=== PATIENT | male | born 1965 | race Caucasian/White ===

== ENCOUNTER 2016-09-02 19:35 | Emergency (ER) | payer SELFPAY ==
[2016-09-02 21:17] LABS: ABSOLUTE EOSINOPHILS # (AUTO) 0.1 10^3/uL (0.0-0.6); ABSOLUTE MONOCYTES (AUTO) 0.5 10^3/uL (0.1-1.4); ABSOLUTE NEUT (AUTO) 3.1 10^3/uL (1.7-8.2); BASOPHILS % (AUTO) 0.8 % (0-2); HEMATOCRIT 44.5 % (37.9-51.0); HEMOGLOBIN 14.9 g/dL (13.5-17.0); HGB HCT DIFFERENCE 0.2; LYMPHOCYTES % (AUTO) 35.1 % (13-45); MEAN CORPUSCULAR HEMOGLOBIN 31.3 pg (27.0-33.4); MEAN CORPUSCULAR HGB CONC 33.4 g/dL (32.0-36.0); MEAN CORPUSCULAR VOLUME 94 fl (80-97); MONOCYTES % (AUTO) 8.5 % (3-13); RED BLOOD COUNT 4.75 10^6/uL (4.35-5.55); RED CELL DISTRIBUTION WIDTH 13.2 % (11.5-14.0); SEGMENTED NEUTROPHILS % (AUTO) 54.6 % (42-78); WHITE BLOOD COUNT 5.6 10^3/uL (4.0-10.5)
[2016-09-02 21:37] LABS: ALANINE AMINOTRANSFERASE 44 U/L (21-72); ALBUMIN 4.6 g/dL (3.5-5.0); ALCOHOL 227 mg/dL (NONE DETECTED); ALKALINE PHOSPHATASE 84 U/L (38-126); ANION GAP 14 (5-19); ASPARTATE AMINO TRANSFERASE 34 U/L (17-59); BILIRUBIN,DIRECT 0.3 mg/dL (0.0-0.4); BILIRUBIN,TOTAL 0.5 mg/dL (0.2-1.3); BLOOD UREA NITROGEN 9 mg/dL (7-20); CALCIUM 9.5 mg/dL (8.4-10.2); CARBON DIOXIDE 25 mmol/L (22-30); CHLORIDE 96 mmol/L (98-107); GLUCOSE 98 mg/dL (75-110); POTASSIUM 4.6 mmol/L (3.6-5.0); TOTAL PROTEIN 7.6 g/dL (6.3-8.2)
--- NOTE | 2016-09-02 21:40 | ER Document Report ---
ED General - General Chief Complaint: Psych Problem Stated Complaint: IVC W/PAPERS Cannot obtain history due to: Intoxicated, Altered mental status Notes: Patient is a 51-year-old male who arrives on involuntary commitment paperwork after being found intoxicated, almost stumbling into traffic. He began expressing delusional ideas to the officer and was subsequently placed on IVC and transported to the emergency department. 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 States he "had a rough day today" as to why he has been drinking so much today. He is not providing any additional meaningful history. TRAVEL OUTSIDE OF THE [place] IN LAST 30 DAYS: No - Related Data Allergies/Adverse Reactions: cephalexin monohydrate [From Keflex] Allergy (Severe, Verified 09/02/16 19:47) Anaphylaxis Penicillins Allergy (Severe, Verified 09/02/16 19:47) Anaphylaxis Past Medical History - General Information source: Patient, Emergency Med Personnel - Social History Smoking Status: Current Every Day Smoker Frequency of alcohol use: Occasional Drug Abuse: None Family History: Reviewed & Not Pertinent Patient has suicidal ideation: No Patient has homicidal ideation: No Renal/ Medical History: Denies: Hx Peritoneal Dialysis - Immunizations Hx Diphtheria, Pertussis, Tetanus Vaccination: No Review of Systems - Review of Systems Notes: Constitutional: Negative for fever. HENT: Negative for sore throat. Eyes: Negative for visual changes. Cardiovascular: Negative for chest pain. Respiratory: Negative for shortness of breath. Gastrointestinal: Negative for abdominal pain, vomiting or diarrhea. Genitourinary: Negative for dysuria. Musculoskeletal: Negative for back pain. Skin: Negative for rash. Neurological: Negative for headaches, weakness or numbness. 10 point ROS negative except as marked above and in HPI. Physical Exam - Vital signs Vitals: Temp Pulse Resp BP Pulse Ox 98.1 F 96 20 154/92 H 99 09/02/16 19:43 09/02/16 19:43 09/02/16 19:43 09/02/16 19:43 09/02/16 19:43 Interpretation: Hypertensive Notes: PHYSICAL EXAMINATION: GENERAL: Somewhat disheveled but in no acute distress. Smells of alcohol HEAD: Atraumatic, normocephalic. EYES: Pupils equal round and reactive to light, extraocular movements intact, sclera anicteric, conjunctiva are normal. ENT: nares patent, oropharynx clear without exudates. Moderately dry mucous membranes. NECK: Normal range of motion, supple without lymphadenopathy LUNGS: Breath sounds clear to auscultation bilaterally and equal. No wheezes rales or rhonchi. HEART: Regular rate and rhythm without murmurs ABDOMEN: Soft, nontender, normoactive bowel sounds. No guarding, no rebound. No masses appreciated. EXTREMITIES: Normal range of motion, no pitting or edema. No cyanosis. NEUROLOGICAL: No focal neurological deficits. Moves all extremities spontaneously and on command. PSYCH: Pleasant on contact but expressing delusional thought processes. Intoxicated SKIN: Warm, Dry, normal turgor, no rashes or lesions noted. Course - Re-evaluation Re-evalutation: 09/02/16 21:39 Patient arrives intoxicated but calm and cooperative after apparently being found stumbling on the side of the road and was walking into traffic. Patient is delusional, stating repeatedly that he is not agent and needs to back to work. Review of prior records demonstrates that patient often has delusions regarding the [employer] in either being a member of the [employer] or being under FBI protection. He has had substance abuse issues in the past per chart review. He is visibly intoxicated at time of my assessment. He denies any acute suicidal or homicidal ideation. He is already under involuntary commitment I believe this is appropriate at this time given his apparent confusion, intoxication, and ongoing delusions. He denies any acute medical complaints. Medical screening exam is unremarkable. He is cleared for evaluation by psychiatry. - Vital Signs Vital signs: Temp Pulse Resp BP Pulse Ox 98.1 F 96 20 154/92 H 99 09/02/16 19:43 09/02/16 19:43 09/02/16 19:43 09/02/16 19:43 09/02/16 19:43 - Laboratory Result Diagrams: 09/02/16 21:05 09/02/16 21:05 Laboratory results interpreted by me: 09/02/16 21:05 Sodium 135.0 L Chloride 96 L Salicylates < 1.0 L Acetaminophen < 10 L - EKG Interpretation by Me Additional EKG results interpreted by me: 09/03/16 03:07 Normal sinus rhythm. Rate 70. No ST elevations or depressions. QTC is 402. Discharge - Discharge Clinical Impression: Delusions Alcoholic intoxication Qualifiers: Complication of substance-induced condition: uncomplicated Qualified Code(s): F10.920 - Alcohol use, unspecified with intoxication, uncomplicated Condition: Stable Disposition: PSYCH HOSP/UNIT
[2016-09-02 21:53] LABS: URINE BARBITURATES SCREEN NEGATIVE; URINE METHADONE SCREEN NEGATIVE; URINE OPIATES LOW NEGATIVE; URINE PHENCYCLIDINE SCREEN NEGATIVE
[2016-09-02 22:02] LABS: APPEARANCE,URINE CLEAR; BILIRUBIN,URINE NEGATIVE (NEGATIVE); GLUCOSE, URINE NEGATIVE (NEGATIVE); KETONES,URINE NEGATIVE (NEGATIVE); LEUKOCYTE ESTERASE,URINE NEGATIVE (NEGATIVE); NITRITE,URINE NEGATIVE (NEGATIVE); PROTEIN,URINE NEGATIVE (NEGATIVE); URINE SPECIFIC GRAVITY 1.003; UROBILINOGEN,URINE NEGATIVE mg/dL (<2.0)
--- NOTE | 2016-09-02 22:29 | EKG REPORT ---
SEVERITY:- NORMAL ECG - SINUS RHYTHM : Confirmed by: Vito Randle MD 02-Sep-2016 22:29:25
--- NOTE | 2016-09-03 10:01 | ER Document Report ---
Doctor's Note Notes: 09/03/16 10:01 Lab work vital signs have been reviewed. At this time patient is currently stable with no overnight events requiring no intervention at this time. Patient stable for transfer or other disposition
--- NOTE | 2016-09-03 11:26 | ER Document Report ---
ED Psych Disorder / Suicide - General Information source: Patient, [facility] Records TRAVEL OUTSIDE OF THE [place] IN LAST 30 DAYS: No - HPI Patient complains to provider of: Other - delusuions; acutely intoxicated upon arrival Onset: Other - chronic Onset was: Cannot confirm Suicide Risk Factors: Lack of social support, Male, Schizophrenia, Substance abuse - ETOH Situational problems related to: Other Normal mood: Yes - patient is at baseline Associated symptoms: Normal affect, Normal mood, Flight of ideas, Other - delusions re: working for or being under FBI protection Similar symptoms previously: Yes - chronic/foxated Recently seen / treated by doctor: Yes <YAYA CHING - Last Filed: 09/03/16 11:14> <ISABEL ARGUETA - Last Filed: 09/03/16 11:36> - General Chief Complaint: Psych Problem Stated Complaint: IVC W/PAPERS - HPI Notes: Patient is a 51 year old male who presented overnight via [employer] when he was intoxicated and wandering through moving traffic. Patient was reportedly talking about the [employer] and referencing needing to get back to work. Note, patient's delusions regarding the FBI date back to 2011 per his EMR. Note, prior episodes also involved acute levels of intoxication. Patient this morning states his body is deteriorating and he needs to go. Patient states he still lives in [place] and states he stays in a van provided to him by the [employer]. 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 Patient reports yesterday was his day off and he had a few beers. 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 Patient denies ever attempting to contacts any of the individuals he observes. Patient reports he knows they are dangerous and feels as though they mostly leave him alone. Patient reports at times set the day he will go to [employer] and sit and have a cup of coffee. Patient denies A/VH. Patient denies thoughts of harming himself or anyone else. 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 Patient is alert and oriented to name and location. Mood is anxious with normal affect. Patient denies suicidal/homicidal ideations, intent, plan, means. Patient denies A/VH. Delusions were noted. Thought processes were fixated on his status with the [employer]. Conversational speech was labile for prosody. Intellectual abilities were estimated within average range. Attention and focus were fair. Insight, judgment, impulse control were poor. Diagnosis: 303.00 (F10.229) Alcohol Intoxication, With Use Disorder, Moderate or Severe Serum Alcohol Level of 227 upon arrival to ED Previous ED visits with Serum Alcohol levels 298.9 (F29) Unspecified Schizophrenia Spectrum and Other Psychotic Disorder ( Delusional Disorder) Delusions of Grandeur Preservation of thoughts Manic-like symptoms (pressured speech, unable to sit still) After becoming sober delusions still observed Patient is psychiatrically cleared and recommended for rescind IVC. Patient presents at baseline, which includes delusions regarding employment with the [employer]. These delusions are fixated and have been demonstrated over the past few years dating back to 2011. Patient denies wanting assistance from a psychiatric provider. Patient was provided with resources upon discharge. ( YAYA CHING) - Related Data Allergies/Adverse Reactions: cephalexin monohydrate [From Keflex] Allergy (Severe, Verified 09/02/16 19:47) Anaphylaxis Penicillins Allergy (Severe, Verified 09/02/16 19:47) Anaphylaxis Past Medical History - General Information source: Patient, Emergency Med Personnel - Social History Smoking Status: Current Every Day Smoker Chew tobacco use (# tins/day): No Frequency of alcohol use: Occasional Drug Abuse: None Family History: Reviewed & Not Pertinent Patient has suicidal ideation: No Patient has homicidal ideation: No Renal/ Medical History: Denies: Hx Peritoneal Dialysis - Immunizations Hx Diphtheria, Pertussis, Tetanus Vaccination: No <YAYA CHING - Last Filed: 09/03/16 11:14> Course - Laboratory Result Diagrams: 09/02/16 21:05 09/02/16 21:05 <YAYA CHING - Last Filed: 09/03/16 11:14> - Laboratory Result Diagrams: 09/02/16 21:05 09/02/16 21:05 <ISABEL ARGUETA - Last Filed: 09/03/16 11:36> - Re-evaluation Re-evalutation: 09/03/16 11:32 Agree with assessment and plan our psychiatric team. Patient does still have delusions however do seem to be baseline upon evaluation of previous visits be the patient's presentation on previous evaluations and discharges. Patient otherwise denies any homicidal suicidal ideation does not look to be a threat to himself or anyone else. Patient will be discharged home (ISABEL ARGUETA) - Vital Signs Vital signs: Temp Pulse Resp BP Pulse Ox 98.2 F 100 18 152/81 H 97 09/03/16 06:56 09/03/16 06:56 09/03/16 06:56 09/03/16 06:56 09/03/16 06:56 - Laboratory Laboratory results interpreted by me: 09/02/16 21:05 Sodium 135.0 L Chloride 96 L Salicylates < 1.0 L Acetaminophen < 10 L Discharge <YAYA CHING - Last Filed: 09/03/16 11:14> <ISABEL ARGUETA - Last Filed: 09/03/16 11:36> - Discharge Clinical Impression: Delusions Alcohol intoxication Qualifiers: Complication of substance-induced condition: uncomplicated Qualified Code(s): F10.920 - Alcohol use, unspecified with intoxication, uncomplicated Condition: Stable Disposition: HOME, SELF-CARE Additional Instructions: Acute Alcohol Intoxication Your evaluation revealed very high levels of alcohol. You can from drinking a large amount of alcohol rapidly! Further, there's the risk of falls , traffic accidents, and fights. A high portion (about 50 percent) of the serious injuries seen in hospital emergency rooms are caused by alcohol. Alcohol overdosage is usually due to an underlying emotional or psychiatric problem. You may benefit from counselling. If "binge" drinking is an ongoing problem for you, or if you drink ANY AMOUNT of alcohol EVERY day, you most likely have a tendency to alcoholism. You should avoid alcohol totally. We can refer you for treatment. Persons with alcohol problems are often also prone to other addictions -- you should discuss any use of medications or drugs with the doctor. You should be watched at home for the next several hours by someone who has not been drinking. Get extra fluids for the next 24 hours. Call the doctor if there is repeated vomiting, increasing headache, decreasing level of alertness, or any other worsening. Schizophrenia Schizophrenia is a chemical disorder that affects how the brain functions. The exact cause is unknown, but it tends to run in families. It is NOT caused by emotional trauma. Schizophrenia causes disordered thinking, including unusual beliefs and inability to "process" happenings around the patient. Patients with schizophrenia benefit greatly from medicine. These medicines are called antipsychotics. Never stop the medicine without the doctor 's approval. Counselling may help the patient deal with his disease. Schizophrenics require a very ordered environment. Stresses and sudden changes may bring out symptoms. Drugs and alcohol abuse may become problems. Contact the counsellor or crisis line if there are thoughts of suicide or of harming others, or if you become aware of unusual thoughts or beliefs Please consider seeking assistance with a local provider for your mental illness and comorbid alcohol abuse. He had been provided a list of resources which may assist you in identifying a provider. Referrals: [facility] [Provider Group] - Follow up as needed
[2016-09-03 11:42] VITALS: BP 141/92
== END 2016-09-03 11:43 | disposition home or self-care (01) ==
LOC: ER 19:35
DX: F10.929 Alcohol use, unspecified with intoxication, unspecified (principal); F20.9 Schizophrenia, unspecified; F22 Delusional disorders; F17.200 Nicotine dependence, unspecified, uncomplicated; Z87.892 Personal history of anaphylaxis; Z88.1 Allergy status to other antibiotic agents; Z88.0 Allergy status to penicillin
CPT/HCPCS: 36415; 80053; 80307; 81001; 85025; 93005; 93010; 99285

== ENCOUNTER 2017-06-12 20:03 | Emergency (ER) | payer SELFPAY ==
[2017-06-12] MEDS ORDERED: NORMAL SALINE 1000 ML 1,000 ML IV ONE ×2 (21:04→23:10)
--- NOTE | 2017-06-12 21:05 | ER Document Report ---
ED Medical Screen (RME) - General Chief Complaint: Abdominal Pain Stated Complaint: ABDOMINAL PAIN/NAUSEA/VOMITING Time Seen by Provider: 06/12/17 21:04 Notes: severe abd pain, nvd TRAVEL OUTSIDE OF THE [place] IN LAST 30 DAYS: No - Related Data Allergies/Adverse Reactions: cephalexin monohydrate [From Keflex] Allergy (Severe, Verified 09/02/16 19:47) Anaphylaxis Penicillins Allergy (Severe, Verified 09/02/16 19:47) Anaphylaxis Past Medical History Renal/ Medical History: Denies: Hx Peritoneal Dialysis - Immunizations Hx Diphtheria, Pertussis, Tetanus Vaccination: No Physical Exam - Vital signs Vitals: Temp Pulse Resp BP Pulse Ox 98.0 F 108 H 14 120/92 H 100 06/12/17 20:19 06/12/17 20:19 06/12/17 20:19 06/12/17 20:19 06/12/17 20:19 Course - Vital Signs Vital signs: Temp Pulse Resp BP Pulse Ox 98.0 F 108 H 14 120/92 H 100 06/12/17 20:19 06/12/17 20:19 06/12/17 20:19 06/12/17 20:19 06/12/17 20:19
[2017-06-12 21:43] LABS: ABSOLUTE BASOPHILS # (AUTO) 0.1 10^3/uL (0.0-0.2); ABSOLUTE EOSINOPHILS # (AUTO) 0.2 10^3/uL (0.0-0.6); ABSOLUTE LYMPHOCYTES (AUTO) 1.2 10^3/uL (0.5-4.7); ABSOLUTE MONOCYTES (AUTO) 0.6 10^3/uL (0.1-1.4); ABSOLUTE NEUT (AUTO) 8.9 10^3/uL (1.7-8.2); BASOPHILS % (AUTO) 0.5 % (0-2); EOSINOPHILS % (AUTO) 1.6 % (0-6); HEMATOCRIT 53.4 % (37.9-51.0); HEMOGLOBIN 18.1 g/dL (13.5-17.0); LYMPHOCYTES % (AUTO) 11.2 % (13-45); MEAN CORPUSCULAR HEMOGLOBIN 31.2 pg (27.0-33.4); MEAN CORPUSCULAR HGB CONC 33.8 g/dL (32.0-36.0); MEAN CORPUSCULAR VOLUME 92 fl (80-97); MONOCYTES % (AUTO) 5.8 % (3-13); PLATELET COUNT 347 10^3/uL (150-450); RED BLOOD COUNT 5.78 10^6/uL (4.35-5.55); RED CELL DISTRIBUTION WIDTH 13.4 % (11.5-14.0); SEGMENTED NEUTROPHILS % (AUTO) 80.9 % (42-78); TOTAL CELLS COUNTED % (AUTO) 100 %
[2017-06-12 21:53] LABS: APPEARANCE,URINE CLEAR; BILIRUBIN,URINE NEGATIVE (NEGATIVE); COLOR,URINE YELLOW; GLUCOSE, URINE NEGATIVE (NEGATIVE); KETONES,URINE NEGATIVE (NEGATIVE); LEUKOCYTE ESTERASE,URINE NEGATIVE (NEGATIVE); NITRITE,URINE NEGATIVE (NEGATIVE); PROTEIN,URINE NEGATIVE (NEGATIVE); URINE SPECIFIC GRAVITY 1.009; UROBILINOGEN,URINE NEGATIVE mg/dL (<2.0)
[2017-06-12] MEDS ORDERED: ONDANSETRON HCL INJ/PF 4 MG/2 ML SDV IV ONE (21:58)
--- NOTE | 2017-06-12 22:00 | ER Document Report ---
ED GI/ - General Chief Complaint: Abdominal Pain Stated Complaint: ABDOMINAL PAIN/NAUSEA/VOMITING Time Seen by Provider: 06/12/17 21:04 Notes: Patient is a 52-year-old male who comes emergency department for chief complaint of nausea and vomiting, he states he vomited more than 5 times, symptoms started only about 1 hour prior to arrival. He states she started getting lightheaded and then called the ambulance. He denies flank pain, denies any specific areas of abdominal pain, denies fever or chills, denies any recent travel or raw food. He denies diarrhea, states he had a normal bowel movement today. He states he did drink alcohol at lunch, he drinks frequently but not daily, he denies any daily medications, only past medical history reported is hernia repair. TRAVEL OUTSIDE OF THE [place] IN LAST 30 DAYS: No - Related Data Allergies/Adverse Reactions: cephalexin monohydrate [From Keflex] Allergy (Severe, Verified 09/02/16 19:47) Anaphylaxis Penicillins Allergy (Severe, Verified 09/02/16 19:47) Anaphylaxis Past Medical History - General Information source: Patient - Social History Smoking Status: Current Every Day Smoker Smoking Education Provided: Yes - <3 min Frequency of alcohol use: Heavy Drug Abuse: None Lives with: Alone Family History: Reviewed & Not Pertinent Patient has suicidal ideation: No Patient has homicidal ideation: No - Medical History Medical History: Negative Renal/ Medical History: Denies: Hx Peritoneal Dialysis Past Surgical History: Reports: Hx Herniorrhaphy - Immunizations Hx Diphtheria, Pertussis, Tetanus Vaccination: Yes Review of Systems - Review of Systems Constitutional: No symptoms reported EENT: No symptoms reported Cardiovascular: No symptoms reported Respiratory: No symptoms reported Gastrointestinal: See HPI Genitourinary: No symptoms reported Male Genitourinary: No symptoms reported Musculoskeletal: No symptoms reported Skin: No symptoms reported Hematologic/Lymphatic: No symptoms reported Neurological/Psychological: No symptoms reported Physical Exam - Vital signs Vitals: Temp Pulse Resp BP Pulse Ox 98.0 F 108 H 14 120/92 H 100 06/12/17 20:19 06/12/17 20:19 06/12/17 20:19 06/12/17 20:19 06/12/17 20:19 Interpretation: Normal - General General appearance: Appears well In distress: None - HEENT Head: Normocephalic, Atraumatic Eyes: Normal Conjunctiva: Normal Extraocular movements intact: Yes Eyelashes: Normal Pupils: PERRL Mucous membranes: Dry Pharynx: Normal Neck: Normal - Respiratory Respiratory status: No respiratory distress Chest status: Nontender Breath sounds: Normal Chest palpation: Normal - Cardiovascular Rhythm: Regular Heart sounds: Normal auscultation Murmur: No - Abdominal Inspection: Normal Distension: No distension Bowel sounds: Normal Tenderness: Nontender. No: Tender - Completely nontender abdomen with no guarding, rebound tenderness, or rigidity Organomegaly: No organomegaly - Back Back: Normal, Nontender. No: Tender, CVA tenderness - Extremities General upper extremity: Normal inspection, Nontender, Normal color, Normal ROM , Normal temperature General lower extremity: Normal inspection, Nontender, Normal color, Normal ROM , Normal temperature, Normal weight bearing. No: Amanda's sign - Neurological Neuro grossly intact: Yes Cognition: Normal Orientation: AAOx4 [place] Coma Scale Eye Opening: Spontaneous [place] Coma Scale Verbal: Oriented [place] Coma Scale Motor: Obeys Commands Jess Coma Scale Total: 15 Speech: Normal Motor strength normal: LUE, RUE, LLE, RLE Sensory: Normal - Psychological Associated symptoms: Normal affect, Normal mood - Skin Skin Temperature: Warm Skin Moisture: Dry Skin Color: Noel Course - Re-evaluation Re-evalutation: Patient asymptomatic after IV fluids and nausea medication. He states he feels 1 million times better. Soft abdomen, clear lungs, well-appearing patient, unremarkable vital signs. CBC shows minimal leukocytosis with elevated hemoglobin, chemistry nonspecific, lipase not elevated, urinalysis unremarkable. Suspect elevated hemoglobin from smoking. I discussed this with patient including risks and recommendations. I suspect patient has a virus based on his symptoms, no evidence of acute abdomen on presentation, very low suspicion of ACS based on his presentation. Patient eating and drinking without any difficulty now. Provided with nausea medication, follow-up instructions, return precautions. Patient states satisfaction and agreement. - Vital Signs Vital signs: Temp Pulse Resp BP Pulse Ox 98.3 F 80 18 139/93 H 99 06/13/17 00:34 06/13/17 00:34 06/13/17 00:34 06/13/17 00:34 06/13/17 00:34 - Laboratory Result Diagrams: 06/12/17 21:30 06/12/17 21:30 Laboratory results interpreted by me: 06/12/17 06/12/17 21:30 21:30 WBC 11.0 H RBC 5.78 H Hgb 18.1 H Hct 53.4 H Seg Neutrophils % 80.9 H Lymphocytes % 11.2 L Absolute Neutrophils 8.9 H Potassium 5.2 H Chloride 95 L Calcium 11.1 H Direct Bilirubin 0.5 H Total Protein 9.5 H Albumin 5.3 H Discharge - Discharge Clinical Impression: Nausea and vomiting Qualifiers: Vomiting type: unspecified Vomiting Intractability: non-intractable Qualified Code(s): R11.2 - Nausea with vomiting, unspecified Disposition: HOME, SELF-CARE Additional Instructions: Your evaluation and workup are most consistent with a viral syndrome causing her symptoms. I commend the Zofran provided for nausea, drink plenty of fluids , start with bland food, and rest. This should resolve with time. Follow-up with primary care. Reduce drinking, avoid smoking, your hemoglobin is elevated today and should be rechecked because you may need to donate blood to lower this and reduce your cardiovascular risk. Follow-up with primary care referral. Return if you worsen including uncontrolled vomiting, severe pain, fever of 100.4 or greater, or any other concerning symptoms. Prescriptions: Promethazine HCl [Phenergan 25 mg Tablet] 1 - 2 tab PO Q6H PRN #15 tablet PRN Reason: Referrals: [facility] [Provider Group] - Follow up as needed
[2017-06-12 22:03] LABS: ALANINE AMINOTRANSFERASE 43 U/L (21-72); ALBUMIN 5.3 g/dL (3.5-5.0); ALKALINE PHOSPHATASE 101 U/L (38-126); ANION GAP 14 (5-19); ASPARTATE AMINO TRANSFERASE 37 U/L (17-59); BILIRUBIN,DIRECT 0.5 mg/dL (0.0-0.4); BILIRUBIN,TOTAL 0.7 mg/dL (0.2-1.3); BLOOD UREA NITROGEN 13 mg/dL (7-20); CALCIUM 11.1 mg/dL (8.4-10.2); CARBON DIOXIDE 30 mmol/L (22-30); CHLORIDE 95 mmol/L (98-107); GLUCOSE 96 mg/dL (75-110); LIPASE 126.8 U/L (23-300); POTASSIUM 5.2 mmol/L (3.6-5.0); SODIUM 138.7 mmol/L (137-145); TOTAL PROTEIN 9.5 g/dL (6.3-8.2)
[2017-06-12] MEDS ORDERED: ONDANSETRON ODT 4 MG TAB (6 TAB/ER DISP) PO PRN (23:53)
[2017-06-13 00:49] VITALS: BP 139/93
== END 2017-06-13 00:50 | disposition home or self-care (01) ==
LOC: ER 20:03
DX: R11.2 Nausea with vomiting, unspecified (principal); R10.9 Unspecified abdominal pain; F17.210 Nicotine dependence, cigarettes, uncomplicated; Z88.0 Allergy status to penicillin
CPT/HCPCS: 99284; 96361; 96374; 36415; 83690; 85025; 80053; 81001; J2405; J7030

== ENCOUNTER 2018-06-24 20:29 | Emergency (ER) | payer SELFPAY ==
--- NOTE | 2018-06-24 22:56 | ER Document Report ---
ED General - General Chief Complaint: Hand Swelling Stated Complaint: TINGLING Time Seen by Provider: 06/24/18 22:56 Notes: 53-year-old male to emergency department for evaluation of hand tingling. 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 Did not think anything about it. Denied any pain at that time. States that he was fine throughout the day. Later in this afternoon he was walking outside. Had several beers. Started noticing his hands were tingling. Looked at them and they looked like they were pale and turning white. It was a little cold outside and he was holding some cold beer cans. Denies any other symptoms. Does not feel bad at this time. Sensation has returned back to normal. Skin color back to normal now. TRAVEL OUTSIDE OF THE [place] IN LAST 30 DAYS: No - HPI Onset: This afternoon Quality of pain: Burning Severity: Mild Associated symptoms: None - Related Data Allergies/Adverse Reactions: cephalexin monohydrate [From Keflex] Allergy (Severe, Verified 09/02/16 19:47) Anaphylaxis Penicillins Allergy (Severe, Verified 09/02/16 19:47) Anaphylaxis Past Medical History - General Information source: Patient - Social History Smoking Status: Current Some Day Smoker Chew tobacco use (# tins/day): No Frequency of alcohol use: Social Drug Abuse: None Lives with: Alone Family History: Reviewed & Not Pertinent Patient has suicidal ideation: No Patient has homicidal ideation: No - Medical History Medical History: Negative Renal/ Medical History: Denies: Hx Peritoneal Dialysis Past Surgical History: Reports: Hx Herniorrhaphy - Immunizations Hx Diphtheria, Pertussis, Tetanus Vaccination: Yes Review of Systems - Review of Systems Constitutional: denies: Fever, Malaise, Weakness EENT: denies: Blurred vision, Difficulty swallowing, Mouth pain Cardiovascular: denies: Chest pain, Palpitations, Heart racing, Orthopnea, Dyspnea, Syncope, Dizziness, Lightheaded Respiratory: denies: Cough, Hurts to breathe, Short of breath, Wheezing Gastrointestinal: denies: Abdominal pain, Diarrhea, Nausea, Vomiting Musculoskeletal: See HPI. denies: Back pain, Joint pain, Muscle pain Skin: See HPI. denies: Dryness, Lesions Neurological/Psychological: Sensory change, Numbness. denies: Confusion, Weakness Physical Exam - Vital signs Vitals: Temp Pulse Resp BP Pulse Ox 97.7 F 76 16 126/75 H 100 06/24/18 20:47 06/24/18 20:47 06/24/18 20:47 06/24/18 20:47 06/24/18 20:47 Interpretation: Normal - General General appearance: Appears well, Alert - Respiratory Respiratory status: No respiratory distress Chest status: Nontender Breath sounds: Normal Chest palpation: Normal - Cardiovascular Rhythm: Regular Heart sounds: Normal auscultation Murmur: No - Extremities General upper extremity: Normal inspection, Nontender, Normal color, Normal ROM, Normal temperature General lower extremity: Normal inspection, Nontender, Normal color, Normal ROM, Normal temperature, Normal weight bearing. No: Amanda's sign - Neurological Cognition: Normal Orientation: AAOx4 Cranial nerves: Normal Sensory: Normal - Skin Skin Temperature: Warm Skin Moisture: Dry Skin Color: Normal Course - Re-evaluation Re-evalutation: 06/24/18 23:52 Evaluation of the hands reveal no significant deformity. No garcia. No signs of chemical scalding or other issues. At this time likely patient had some sort of vasospastic condition similarly ray nods phenomenon. I have explained this to him. I find nothing further workup at this time. Will discharge in stable condition as his vital signs, workup look unremarkable. - Vital Signs Vital signs: Temp Pulse Resp BP Pulse Ox 98.5 F 75 18 125/68 97 06/24/18 23:20 06/24/18 23:20 06/24/18 23:20 06/24/18 23:20 06/24/18 23:20 Discharge - Discharge Clinical Impression: Raynaud phenomenon Qualifiers: Raynaud?s-associated gangrene presence: without gangrene Qualified Code(s): I73.00 - Raynaud's syndrome without gangrene Condition: Good Disposition: HOME, SELF-CARE Instructions: Numbness or Paresthesia ([facility]) Additional Instructions: Return for any worsening symptoms or concerns or follow-up with your primary care provider.
[2018-06-24 23:21] VITALS: BP 125/68
== END 2018-06-24 23:21 | disposition home or self-care (01) ==
LOC: ER 20:29
DX: I73.00 Raynaud's syndrome without gangrene (principal); F17.200 Nicotine dependence, unspecified, uncomplicated; Z88.0 Allergy status to penicillin
CPT/HCPCS: 99283

== ENCOUNTER 2018-09-20 | Emergency (ER) | payer SELFPAY ==
[2018-09-20] MEDS ORDERED: ACETAMINOPHEN 325 MG TABLET PO ONE (00:15)
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
[2018-09-20] MEDS ORDERED: OXYCODONE-ACETAMINOPHEN 5-325 MG TABLET PO ONE (06:34)
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
[2018-09-20 07:38] VITALS: BP 144/94
== END 2018-09-20 07:39 | disposition home or self-care (01) ==
LOC: ER
DX: S16.1XXA Strain of muscle, fascia and tendon at neck level, initial encounter (principal); S02.642A Fracture of ramus of left mandible, initial encounter for closed fracture; Y04.2XXA Assault by strike against or bumped into by another person, initial encounter; F17.210 Nicotine dependence, cigarettes, uncomplicated; Z88.0 Allergy status to penicillin; Z88.3 Allergy status to other anti-infective agents
CPT/HCPCS: 70450; 70486; 72125; 99284; 99406

== ENCOUNTER 2018-11-18 17:17 | Emergency (ER) | payer SELFPAY ==
[2018-11-18 18:52] LABS: ABSOLUTE BASOPHILS # (AUTO) 0.1 10^3/uL (0.0-0.2); ABSOLUTE EOSINOPHILS # (AUTO) 0.3 10^3/uL (0.0-0.6); ABSOLUTE LYMPHOCYTES (AUTO) 2.1 10^3/uL (0.5-4.7); ABSOLUTE MONOCYTES (AUTO) 0.4 10^3/uL (0.1-1.4); ABSOLUTE NEUT (AUTO) 2.9 10^3/uL (1.7-8.2); BASOPHILS % (AUTO) 1.1 % (0-2); EOSINOPHILS % (AUTO) 4.9 % (0-6); HEMATOCRIT 42.6 % (37.9-51.0); HEMOGLOBIN 14.5 g/dL (13.5-17.0); LYMPHOCYTES % (AUTO) 35.8 % (13-45); MEAN CORPUSCULAR HEMOGLOBIN 31.8 pg (27.0-33.4); MEAN CORPUSCULAR HGB CONC 33.9 g/dL (32.0-36.0); MEAN CORPUSCULAR VOLUME 94 fl (80-97); MONOCYTES % (AUTO) 7.8 % (3-13); PLATELET COUNT 224 10^3/uL (150-450); RED BLOOD COUNT 4.54 10^6/uL (4.35-5.55); RED CELL DISTRIBUTION WIDTH 13.4 % (11.5-14.0); SEGMENTED NEUTROPHILS % (AUTO) 50.4 % (42-78); TOTAL CELLS COUNTED % (AUTO) 100 %; WHITE BLOOD COUNT 5.7 10^3/uL (4.0-10.5)
--- NOTE | 2018-11-18 19:03 | ER Document Report ---
Addendum entered and electronically signed by JAMSHID ROMERO LPC 11/19/18 10:22: Discharge - Discharge Clinical Impression: Paranoid behavior Alcohol intoxication Qualifiers: Complication of substance-induced condition: uncomplicated Qualified Code(s): F10.920 - Alcohol use, unspecified with intoxication, uncomplicated Condition: Stable Disposition: HOME, SELF-CARE Additional Instructions: You have been evaluated by both medical and behavioral health providers while in the emergency department. You have been cleared from both acute medical and psychiatric services. Alcohol inhibits insight, judgment and impulse control. It also can cause and or exacerbate symptoms of Schizophrenia and should be avoided. You were recommended for voluntary alcohol detoxification and then outpatient treatment for ongoing mental health support via medication management and therapy. You have resources for both. Acute Alcohol Intoxication Your evaluation revealed very high levels of alcohol. You can from drinking a large amount of alcohol rapidly! Further, there's the risk of falls, traffic accidents, and fights. A high portion (about 50 percent) of the serious injuries seen in hospital emergency rooms are caused by alcohol. Alcohol overdosage is usually due to an underlying emotional or psychiatric problem. You may benefit from counselling. If "binge" drinking is an ongoing problem for you, or if you drink ANY AMOUNT of alcohol EVERY day, you most likely have a tendency to alcoholism. You should avoid alcohol totally. We can refer you for treatment. Persons with alcohol problems are often also prone to other addictions -- you should discuss any use of medications or drugs with the doctor. You should be watched at home for the next several hours by someone who has not been drinking. Get extra fluids for the next 24 hours. Call the doctor if there is repeated vomiting, increasing headache, decreasing level of alertness, or any other worsening. Schizophrenia Schizophrenia is a chemical disorder that affects how the brain functions. The exact cause is unknown, but it tends to run in families. It is NOT caused by emotional trauma. Schizophrenia causes disordered thinking, including unusual beliefs and inability to "process" happenings around the patient. Patients with schizophrenia benefit greatly from medicine. These medicines are called antipsychotics. Never stop the medicine without the doctor's approval. Counselling may help the patient deal with his disease. Schizophrenics require a very ordered environment. Stresses and sudden changes may bring out symptoms. Drugs and alcohol abuse may become problems. Contact the counsellor or crisis line if there are thoughts of suicide or of harming others, or if you become aware of unusual thoughts or beliefs Follow-Up Plan: You have been provided the outpatient substance abuse resource sheet which highlighted [facility] for crisis, talk therapy and linkage to other services/supports such as alcohol detoxification. It is recommended you do alcohol detoxification. You have also been provided the outpatient mental health resource sheet for local agencies that can assist with medication management and therapy for Schizophrenia and related issues. If your symptoms persist or worsen you should call your physician immediately, utilize mobile crisis or return to the emergency department. Referrals: [facility] [Outside] - Follow up as needed Original Note: ED General - General Chief Complaint: ETOH Abuse Stated Complaint: WEAKNESS Time Seen by Provider: 11/18/18 18:39 TRAVEL OUTSIDE OF THE [place] IN LAST 30 DAYS: No - HPI Notes: Patient is a 53-year-old male that presents to the emergency department for chief complaint of being poisoned. Patient presented by EMS. HPI is limited because of patient's current intoxication. He states he is here because "an area at the gas station poison me". When I asked why he was being poisoned he states that "because I have them under surveillance." Patient also reports that he is a member of the [employer] and [employer] and someone at the gas station is trying to kill him because of this. He denies homicidal or suicidal thoughts. He does state he drank "some" alcohol today. Past Medical History: Raynods phenomenon, schizophrenia Past Surgical History: Reviewed in chart Social History: History of alcohol abuse Family History: Reviewed and noncontributory for presenting illness Allergies: Reviewed, see documented allergy list. REVIEW OF SYSTEMS: Unable to obtain because of current acuity of condition PHYSICAL EXAMINATION: Vital signs reviewed, nursing noted reviewed. GENERAL: Appears intoxicated, somnolent HEAD: Atraumatic, normocephalic. EYES: Eyes appear normal, extraocular movements intact, sclera anicteric, conjunctiva are normal. ENT: nares patent, oropharynx clear without exudates. Dry mucous membranes. NECK: Normal range of motion, supple without lymphadenopathy, no midline spinal tenderness LUNGS: Breath sounds clear to auscultation bilaterally and equal. No wheezes rales or rhonchi. HEART: Regular rate and rhythm without murmurs ABDOMEN: Soft, nontender, normoactive bowel sounds. No rebound, guarding, or rigidity. No masses appreciated. EXTREMITIES: Nontender, good range of motion, no pitting or edema. NEUROLOGICAL: No focal neurological deficits. Moves all extremities spontaneously Motor and sensory grossly intact on exam. PSYCH: Flat affect, paranoid SKIN: Warm, Dry, normal turgor, no rashes or lesions noted on exposed skin - Related Data Allergies/Adverse Reactions: cephalexin monohydrate [From Keflex] Allergy (Severe, Verified 09/20/18 06:18) Anaphylaxis Penicillins Allergy (Severe, Verified 09/20/18 06:18) Anaphylaxis Past Medical History - Social History Smoking Status: Unknown if Ever Smoked Frequency of alcohol use: Heavy Family History: Reviewed & Not Pertinent Patient has suicidal ideation: No Patient has homicidal ideation: No Renal/ Medical History: Denies: Hx Peritoneal Dialysis Past Surgical History: Reports: Hx Herniorrhaphy - Immunizations Hx Diphtheria, Pertussis, Tetanus Vaccination: Yes Physical Exam - Vital signs Vitals: Temp Pulse BP Pulse Ox 97.3 F 72 125/74 97 11/18/18 17:40 11/18/18 17:40 11/18/18 17:40 11/18/18 17:40 Course - Re-evaluation Re-evalutation: 11/18/18 19:05 Vitals reviewed. Nursing notes reviewed. Patient appears intoxicated and is expressing paranoid behavior. He currently is not capable of making good decisions for his medical care or understanding his acuity of condition and will placed on IVC petition. 11/18/18 20:30 Patient reevaluated and is still waking to verbal stimuli but somnolent and appears intoxicated. Blood alcohol level is 250. The remainder of his work-up is unremarkable. Patient has no new complaints but is still expressing paranoid thoughts. He has not wanted to provide a urine sample yet and that is still pending. Patient will continue to be monitored with his present level of intoxication. Laboratory 11/18/18 11/18/18 18:31 18:31 WBC 5.7 RBC 4.54 Hgb 14.5 Hct 42.6 MCV 94 MCH 31.8 MCHC 33.9 RDW 13.4 Plt Count 224 Seg Neutrophils % 50.4 Lymphocytes % 35.8 Monocytes % 7.8 Eosinophils % 4.9 Basophils % 1.1 Absolute Neutrophils 2.9 Absolute Lymphocytes 2.1 Absolute Monocytes 0.4 Absolute Eosinophils 0.3 Absolute Basophils 0.1 Sodium 139.2 Potassium 4.6 Chloride 106 Carbon Dioxide 21 L Anion Gap 12 BUN 10 Creatinine 0.82 Est GFR ( Amer) > 60 Est GFR (Non-Af Amer) > 60 Glucose 85 Calcium 9.3 Total Bilirubin 0.3 Direct Bilirubin 0.2 Neonat Total Bilirubin Not Reportable Neonat Direct Bilirubin Not Reportable Neonat Indirect Bili Not Reportable AST 34 ALT 31 Alkaline Phosphatase 89 Total Protein 7.3 Albumin 4.2 Salicylates < 1.0 L Acetaminophen < 10 L Serum Alcohol 250 11/18/18 20:33 EMS is now present who initially brought the patient to the emergency room. She states that he was sitting in [facility] and asked an [facility] to call EMS for him because he was not feeling right and felt that he had been drugged. When EMS arrived he was sitting in side of [facility] in no distress. He ambulated to the back of the ambulance without assistance. There was no report of trauma or prolonged heat exposure. Patient was known to police who were also on scene and EMS states that PD said he usually is delusional about th e fact that he is part of the law enforcement but is polite and has not ever caused issues. 11/19/18 02:12 Patient is continued to have improvement of his mentation and is appearing more sober. He has ambulated without difficulty. Patient is tolerating eating food. His urinalysis is negative. Patient is still expressing paranoid thoughts and believes that he was poisoned tonight because of his surveillance efforts. He will remain in the emergency room for further psychiatric evaluation. He is currently medically cleared. - Vital Signs Vital signs: Temp Pulse Resp BP Pulse Ox 97.9 F 83 20 131/74 H 100 11/19/18 00:06 11/19/18 00:06 11/19/18 00:06 11/19/18 00:06 11/19/18 00:06 - Laboratory Result Diagrams: 11/18/18 18:31 11/18/18 18:31 Laboratory results interpreted by me: 11/18/18 18:31 Carbon Dioxide 21 L Salicylates < 1.0 L Acetaminophen < 10 L - EKG Interpretation by Me Additional EKG results interpreted by me: 11/18/18 19:07 Interpreted by myself 1813: Normal sinus rhythm, rate 70, normal axis, no ectopy, no STEMI Discharge - Discharge Clinical Impression: Paranoid behavior Alcohol intoxication Qualifiers: Complication of substance-induced condition: uncomplicated Qualified Code(s): F10.920 - Alcohol use, unspecified with intoxication, uncomplicated Condition: Stable Disposition: PSYCH HOSP/UNIT
[2018-11-18 19:18] LABS: ALANINE AMINOTRANSFERASE 31 U/L (21-72); ALBUMIN 4.2 g/dL (3.5-5.0); ALCOHOL 250 mg/dL (NONE DETECTED); ALKALINE PHOSPHATASE 89 U/L (38-126); ANION GAP 12 (5-19); ASPARTATE AMINO TRANSFERASE 34 U/L (17-59); BILIRUBIN,DIRECT 0.2 mg/dL (0.0-0.4); BILIRUBIN,TOTAL 0.3 mg/dL (0.2-1.3); BLOOD UREA NITROGEN 10 mg/dL (7-20); CALCIUM 9.3 mg/dL (8.4-10.2); CARBON DIOXIDE 21 mmol/L (22-30); CHLORIDE 106 mmol/L (98-107); GLUCOSE 85 mg/dL (75-110); POTASSIUM 4.6 mmol/L (3.6-5.0); TOTAL PROTEIN 7.3 g/dL (6.3-8.2)
[2018-11-18 19:21] LABS: ACETAMINOPHEN < 10 ug/mL (10-30); SALICYLATE < 1.0 mg/dL (2.0-20.0)
--- NOTE | 2018-11-18 23:15 | EKG REPORT ---
SEVERITY:- NORMAL ECG - SINUS RHYTHM : Confirmed by: Kia Jacob 18-Nov-2018 23:14:24
[2018-11-19 01:03] LABS: APPEARANCE,URINE CLEAR; BILIRUBIN,URINE NEGATIVE (NEGATIVE); COLOR,URINE STRAW; GLUCOSE, URINE NEGATIVE (NEGATIVE); KETONES,URINE NEGATIVE (NEGATIVE); LEUKOCYTE ESTERASE,URINE NEGATIVE (NEGATIVE); NITRITE,URINE NEGATIVE (NEGATIVE); PROTEIN,URINE NEGATIVE (NEGATIVE); URINE SPECIFIC GRAVITY 1.005; UROBILINOGEN,URINE NEGATIVE mg/dL (<2.0)
[2018-11-19 01:24] LABS: URINE AMPHETAMINES SCREEN NEGATIVE; URINE BARBITURATES SCREEN NEGATIVE; URINE BENZODIAZEPINES SCREEN NEGATIVE; URINE COCAINE SCREEN NEGATIVE; URINE MARIJUANA (THC) SCREEN NEGATIVE; URINE METHADONE SCREEN NEGATIVE; URINE PHENCYCLIDINE SCREEN NEGATIVE
[2018-11-19] MEDS ORDERED: DIAZEPAM 5 MG TABLET PO ONE (03:54)
--- NOTE | 2018-11-19 09:27 | ER Document Report ---
Doctor's Note Notes: 11/19/18 09:25 53-year-old male who presents today with paranoid delusions stating people at the gas station were attempting to poison him with an elevated blood alcohol level. Labs and vital signs as recorded. Patient is calm and cooperative at the moment sleeping. 11/19/18 11:24 We called [employer] where supposedly with the patient's sister is an employee. They know the patient very well. They state that they are very comfortable with the patient being released. They state that the patient can even come and get a slice of pizza there. We will provide outpatient resources for the patient. Patient is very calm and cooperative at this time.
[2018-11-19 12:42] VITALS: BP 167/89
== END 2018-11-19 12:42 | disposition home or self-care (01) ==
LOC: ER 17:17
DX: F10.120 Alcohol abuse with intoxication, uncomplicated (principal); R40.0 Somnolence; Z87.892 Personal history of anaphylaxis; Z88.1 Allergy status to other antibiotic agents; Z88.0 Allergy status to penicillin
CPT/HCPCS: 36415; 80053; 80307; 81001; 85025; 93005; 93010; 99285

== ENCOUNTER 2020-05-24 05:28 | Emergency (ER) | payer SELFPAY ==
--- NOTE | 2020-05-24 07:26 | ER Document Report ---
ED General - General Chief Complaint: Possible Overdose Stated Complaint: POSS POISONING Time Seen by Provider: 05/24/20 06:11 TRAVEL OUTSIDE OF THE [place] IN LAST 30 DAYS: No - HPI Notes: Chief complaint: Accidental toxic ingestion History of present illness: Previously healthy 55-year-old male taking no regular medications transported here by EMS for evaluation following accidental ingestion of carwash detergent. Patient reports that he had gone to bed and was sleeping and awakening around 5:30 AM feeling thirsty. A family member had left a pump on the windowsill adjacent to his bed that had some car wash detergent and it. He picked this up and took about 3 sips of the liquid. He realized that this tasted bad and on checking with family found out that they have had some car wash detergent in the cup. He vomited once and had burning sensation in his mouth. He subsequently rinsed his mouth out with water. Says he had some "dry heaves" after this. No bleeding. No shortness of breath or chest pain. He called EMS and was transported here. Patient says all symptoms have resolved since he has been here. - Related Data Allergies/Adverse Reactions: cephalexin monohydrate [From Keflex] Allergy (Severe, Verified 09/20/18 06:18) Anaphylaxis Penicillins Allergy (Severe, Verified 09/20/18 06:18) Anaphylaxis Past Medical History - General Information source: Patient, Emergency Med Personnel - Social History Smoking Status: Never Smoker Frequency of alcohol use: Occasional Drug Abuse: None Lives with: Family Family History: Reviewed & Not Pertinent - Medical History Medical History: Negative Renal/ Medical History: Denies: Hx Peritoneal Dialysis Past Surgical History: Reports: Hx Herniorrhaphy - Immunizations Hx Diphtheria, Pertussis, Tetanus Vaccination: Yes Review of Systems - Review of Systems Notes: Constitutional: Negative for fever. HENT: Mouth and throat were initially burning but the symptoms have resolved by the time of my evaluation.. Eyes: Negative for visual changes. Cardiovascular: Negative for chest pain. Respiratory: Negative for shortness of breath. Gastrointestinal: As per HPI. Genitourinary: Negative for dysuria. Musculoskeletal: Negative for back pain. Skin: Negative for rash. Neurological: Negative for headaches, weakness or numbness. 10 point ROS negative except as marked above and in HPI. Physical Exam - Vital signs Vitals: Resp BP 14 178/107 H 05/24/20 05:29 05/24/20 05:29 - Notes Notes: GENERAL: Well-developed well-nourished appearing in no acute distress. SKIN: Good turgor no rashes. HEAD: Normocephalic atraumatic. EYES: PERRLA. EOMI. Conjunctivae and sclerae clear. EARS: CANALS AND TMS CLEAR. NOSE: CLEAR. MOUTH: Moist mucosa. Good dentition. No stridor or edema. No drooling. NECK: Supple. No masses or thyromegaly. No adenopathy. Carotids 2+ without bruits. No JVD. BACK: Symmetrical without tenderness. CHEST: Respirations unlabored. Breath sounds clear and symmetrical. HEART: Regular rhythm. No murmur gallop or rub. ABDOMEN: Soft nontender without masses, organomegaly or rebound. Bowel sounds normally active. No bruits. GENITALIA: Deferred. EXTREMITIES: No edema. No calf tenderness. Cap refill less than 1.5 seconds. Dorsalis pedis and posterior tibial pulses 3+ and symmetrical. NEUROLOGICAL: GCS 15. Alert and oriented x3. Normal gait. Fluent speech. Cranial nerves II through XII intact. Sensorimotor and cerebellar normal. Normal tone. PSYCHIATRIC: Appropriate affect. Course - Re-evaluation Re-evalutation: 05/24/20 07:28 Case has been reviewed with [place] poison control. They recommend that we observe the patient in the ED for a total of 3 hours from time of ingestion and if his symptoms continue to improve he may be discharged without other intervention. 05/24/20 08:48 Patient is asymptomatic at this time with stable vital signs and he is taking water orally without any difficulty. I do note that his blood pressure is intermittently elevated and his most recent reading at the bedside by me is 140/85. Advised him to see primary care doctor for follow-up on this. Findings, clinical impression and plan of treatment have been discussed with patient/family. Understanding of current findings and recommendations has been acknowledged by them and there is agreement regarding disposition and follow-up. - Vital Signs Vital signs: Temp Pulse Resp BP Pulse Ox 97.8 F 79 9 L 147/101 H 97 05/24/20 05:40 05/24/20 05:45 05/24/20 06:30 05/24/20 06:30 05/24/20 06:30 - Laboratory Results Critical Laboratory Results Reviewed: No Critical Results - Radiology Results Critical Radiology Results Reviewed: No Critical Results Discharge - Discharge Clinical Impression: Accidental ingestion detergent, Blood pressure elevated without history of HTN Condition: Stable Disposition: HOME, SELF-CARE Forms: Elevated Blood Pressure Referrals: [facility] [Provider Group] - Follow up as needed
[2020-05-24 08:57] VITALS: BP 147/82
== END 2020-05-24 08:57 | disposition home or self-care (01) ==
LOC: ER 05:28
DX: T55.1X1A Toxic effect of detergents, accidental (unintentional), initial encounter (principal); R11.10 Vomiting, unspecified; R19.8 Other specified symptoms and signs involving the digestive system and abdomen; R09.89 Other specified symptoms and signs involving the circulatory and respiratory systems; R03.0 Elevated blood-pressure reading, without diagnosis of hypertension; Z87.892 Personal history of anaphylaxis; Z88.1 Allergy status to other antibiotic agents; Z88.0 Allergy status to penicillin
CPT/HCPCS: 99282